=== PATIENT | female | born 1980 | race Caucasian/White ===

== ENCOUNTER → 2017-10-17 | Day surgery (SDC) | payer OTHER ==
[~2017-10-17] VITALS: Ht 170.2 cm; Wt 80.7 kg
[~2017-10-17] MED LIST: CHANTIX0.5 M1 PO; IBUPROFEN800 M1 PO; MAGNESIUM500 M2 PO; NICODERM CQ1 EAC2 TOP; TRAZODONE HCL50 M1 PO; VITAMIN B-125000 MCG PO
--- NOTE | 2017-10-17 07:20 | History & Physical Pre-Op ---
General Information and HPI History of Present Illness: Beth is a 37-year-old female with a long-standing and worsening complaint of pain to the bottoms of both the left and right heels. The patient has undergone an extended course of conservative care, including shoe gear and activity modification, rest, immobilization and courses of NSAIDs. None of this is yielded her any significant relief. The patient presents today for preoperative surgical consultation. Allergies/Medications Allergies: Coded Allergies: Penicillins (LARYNGEAL EDEMA 10/13/17) Sulfa (Sulfonamide Antibiotics) (LARYNGEAL EDEMA 10/13/17) erythromycin base (throat swells 10/13/17) hydrocodone (VOMITING, HIVES - OKAY WITH BRAND NAME VICODIN 10/13/17) metoclopramide (From REGLAN) (LARYNGEAL EDEMA 10/13/17) Home Med list Cyanocobalamin (Vitamin B-12) (Vitamin B-12) 5,000 MCG TAB.SUBL 1 TAB PO DAILY SUPPLEMENT (Reported) Ibuprofen 800 MG TABLET 1 TAB PO TID PRN PAIN/INFLAMMATION (Reported) Magnesium Oxide (Magnesium) 500 MG CAPSULE 1 CAP PO DAILY SUPPLEMENT ( Reported) Nicotine (Nicoderm Cq) 21 MG/24 HOUR PATCH.TD24 1 PAT TOP DAILY SMOKING CESSATION (Reported) Trazodone HCl 50 MG TABLET 1 TAB PO QPM SLEEP (Reported) Varenicline Tartrate (Chantix) 0.5 MG TABLET 1 TAB PO BID SMOKING CESSATION ( Reported) Past History Surgical History Pertinent Surgical History: appendectomy, hysterectomy Review of Systems Review of Systems: Unremarkable except for that noted in history of present illness Exam & Diagnostic Data Physical Exam: Lungs clear bilaterally. Heart sounds rate and rhythm regular. Lower extremity physical exam demonstrates intact pedal pulses bilaterally. Pulses dorsalis pedis and posterior tibial arteries are palpable bilaterally. Patient without any sensory motor deficits. Deep tendon reflexes grossly intact. Patient noted to have significant pain with palpation to the plantar medial aspect of the left and right heels. Negative Tinel sign noted with percussion of the posterior tibial nerve. Assessment/Plan Assessment/Plan: Plantar fasciitis left and right heels. A lengthy discussion reviewing both surgical and conservative options was held the patient at bedside and the patient elected to go forward surgery despite the risks. As Ranked By This Provider Problem List: 1. Plantar fascial fibromatosis Attending MD Review Statement Attending Statement Attending MD Statement: examined this patient
--- NOTE | 2017-10-17 09:29 | Operative Report ---
See Addendum Operative/Inv Procedure Report Surgery Date: 10/17/17 Name of Procedure: 1 plantar fasciotomy right 2 plantar fasciotomy left Pre-Operative Diagnosis: 1 plantar fasciitis right 2 plantar fasciitis left Post-Operative Diagnosis: The same Estimated Blood Loss: scant Surgeon/Customer Order Clerk: River CABEZAS,Aurelio Colon DPM Anesthesia: moderate sedation, block Operative/Procedure Note Note: After obtaining informed consent the patient was brought to the operating room and placed on the operating table in the supine position. The patient isn't securely fastened to the operating table utilizing safety belt. After administration of IV sedation, 10 mL of 0.5% Marcaine plain was infiltrated about the patient's left and right ankles. 2 well-padded ankle tourniquets were placed about the patient's left and right lower extremities. 600 mg of clindamycin were delivered intravenously times one dose. The left and right feet were then scrubbed prepped and draped in usual aseptic manner. Right lower extremity was then elevated to exsanguinate the limb, at which point the ankle tourniquet was inflated 250 mmHg. Attention was then directed to the plantar medial aspect of the right heel, where a 3 cm linear incision was made at the junction of the dorsal plantar skin. The dissection was then carried down to the subtenons tissues. The dissection was then deepened to the medial margin of the plantar fascia, which was dissected off of the medial tubercle calcaneal tuberosity. The bone spur was then rongeured and bone rasped smooth. Plantar fascial specimen was then sent for pathologic inspection. The deep tissues were reapproximated with 3-0 Vicryl and the skin edges reapproximated 3-0 nylon. The incision was then dressed with Xeroform, 4 x 4's Kerlix and an Hany wrap. The tourniquet was then deflated. Next, the left lower extremity was elevated to examine to limb, at which point the ankle tourniquet was inflated 250 mmHg. Attention was again directed to the plantar medial aspect of the left heel, where a 3 cm incision was made at the junction of the dorsal plantar skin. The dissection was then carried down to the medial margin of the plantar fascia, which was freed from its origin on the medial tubercle calcaneal tuberosity. A bone spur was then rongeured and rasped smooth. Plantar fascial specimen was sent for pathologic inspection. The open wound was then irrigated with copious Svensson normal sterile saline. The deep tissues were reapproximated 3-0 Vicryl and the skin edges reapproximated 3-0 nylon. Incision was dressed with Xeroform , 4 x 4's Kerlix and an Hany wrap. The patient was noted to tolerate both procedure and anesthesia well and the patient was transported from the operating room to recovery with vital signs stable best assess intact to the left and right digits. Please cc a copy of this dictation to Arturo Colon DPM.
== END ==
LOC: STS 03:22
DX: M77.32 Calcaneal spur, left foot (principal); M77.31 Calcaneal spur, right foot; M72.2 Plantar fascial fibromatosis; Z87.891 Personal history of nicotine dependence
CPT/HCPCS: J1885; J2001; J2250